=== PATIENT | male | born 1965 | race Two or more races ===

== ENCOUNTER 2019-11-02 15:44 | Outpatient (CLI) | payer OTHER | END 2019-11-02 15:51 | disposition home or self-care (01) | LOC: LAB 15:44 | DX: R97.20 Elevated prostate specific antigen [PSA] (principal) ==

== ENCOUNTER 2019-11-13 07:05 | Outpatient (CLI) | payer OTHER | END 2019-11-13 12:26 | disposition home or self-care (01) | LOC: SONOGRAMA 07:05 | DX: D29.1 Benign neoplasm of prostate (principal); R97.20 Elevated prostate specific antigen [PSA] ==